=== PATIENT | female | born 1965 | race Caucasian/White ===

== ENCOUNTER → 2020-03-10 | Outpatient (CLI) | payer BC, OTHER | LOC: KOH-I 12:29 | DX: M54.5 Low back pain (principal); G89.29 Other chronic pain; M51.36 Other intervertebral disc degeneration, lumbar region; M43.16 Spondylolisthesis, lumbar region; M48.061 Spinal stenosis, lumbar region without neurogenic claudication; M89.8X8 Other specified disorders of bone, other site | CPT/HCPCS: 72100 ==

== ENCOUNTER → 2021-03-24 | Outpatient (CLI) | payer BC, OTHER | LOC: EXRD 08:38 | DX: R07.81 Pleurodynia (principal); K44.9 Diaphragmatic hernia without obstruction or gangrene | CPT/HCPCS: 71046 ==